=== PATIENT | female | born 1975 | race Caucasian/White ===

== ENCOUNTER 2018-08-15 19:21 | Emergency (ER) | payer OTHER ==
[~2018-08-15] VITALS: Ht 162.6 cm; Wt 55.3 kg
== END 2018-08-15 19:46 | disposition home or self-care (01) ==
LOC: ER 19:21
DX: S60.312A Abrasion of left thumb, initial encounter (principal); W19.XXXA Unspecified fall, initial encounter
CPT/HCPCS: 90471; 90714; 99283-25